=== PATIENT | male | born 1955 | race Caucasian/White ===

== ENCOUNTER 2021-10-13 16:29 | Inpatient (IN) | payer BC, MEDICARE ==
[2021-10-13 17:12] LABS: #Lymphocytes 1.6 thou/uL (1.20-3.40); #Monocytes 0.6 thou/uL (0.11-0.59); #Neutrophils 6.8 thou/uL (1.40-6.50); %Basophils 0.4 % (0.0-1.0); %Eosinophils 0.2 % (0.0-10.0); %Lymphocytes 17.3 % (21.0-51.0); %Monocytes 6.5 % (0.0-10.0); %Neutrophils 75.6 % (42.0-75.0); Mean Corpuscular HGB CONC 35.3 g/dL (32.0-36.0); Mean Corpuscular Hemoglobin 31.7 pg (27.0-31.0); Mean Platelet Volume 8.8 fL (7.4-10.4); Platelet Count 208 thou/uL (130-400); RBC Distribution Width 12.3 % (11.5-14.5); Red Blood Cell (RBC) Count 5.36 mill/uL (4.70-6.10)
[2021-10-13 17:37] LABS: ALT (SGPT) 25 U/L (8-55); AST (SGOT) 32 U/L (5-34); Albumin 4.7 g/dL (3.4-4.8); Alkaline Phosphatase 56 U/L (40-110); Anion Gap 17 mmol/L (10-20); BUN (Urea Nitrogen) 14 mg/dL (8.4-25.7); Calc. Creatinine Clearance 0 mL/min (70-130); Calcium 9.8 mg/dL (7.8-10.44); Carbon Dioxide 23 mmol/L (23-31); Chloride 99 mmol/L (98-107); Estimated GFR 70; Glucose 96 mg/dL (80-115); Potassium 3.9 mmol/L (3.5-5.1); Protein, Total 7.7 g/dL (5.8-8.1); Sodium 135 mmol/L (136-145)
[2021-10-13] MEDS ORDERED: levETIRAcetam 500 MG/5 ML VIAL ONE (18:28)
[2021-10-13] MEDS ORDERED: Enoxaparin Sodium 80 MG/0.8 ML SYRINGE ONE (18:47)
[2021-10-13] MEDS ORDERED: Enoxaparin Sodium 100 MG/ML SYRINGE ONE (18:51)
[2021-10-13] MEDS ORDERED: Ondansetron PF 4 MG/2 ML Vial IVP PRN (21:17)
[2021-10-13] MEDS ORDERED: Acetaminophen 650 MG Suppository PR PRN (21:17)
[2021-10-13] MEDS ORDERED: Ondansetron ODT 4 MG TAB PO PRN (21:17)
[2021-10-13] MEDS ORDERED: Acetaminophen 325 MG TAB PO PRN (21:17)
[2021-10-13 22:04] VITALS: BMI 29.2
[2021-10-13 22:42] LABS: Troponin I Less than 0.010 ng/mL (< 0.028)
[2021-10-14 02:29] LABS: #Basophils 0.1 thou/uL (0.0-0.2); #Eosinphils 0.1 thou/uL (0.0-0.7); #Lymphocytes 2.1 thou/uL (1.20-3.40); #Monocytes 0.8 thou/uL (0.11-0.59); #Neutrophils 4.7 thou/uL (1.40-6.50); %Basophils 0.7 % (0.0-1.0); %Eosinophils 1.1 % (0.0-10.0); %Lymphocytes 26.7 % (21.0-51.0); %Monocytes 10.9 % (0.0-10.0); %Neutrophils 60.6 % (42.0-75.0); Hemoglobin 15.9 g/dL (14.0-18.0); Mean Corpuscular HGB CONC 35.7 g/dL (32.0-36.0); Mean Corpuscular Hemoglobin 32.2 pg (27.0-31.0); Mean Corpuscular Volume 90.1 fL (78.0-98.0); Mean Platelet Volume 8.4 fL (7.4-10.4); Platelet Count 206 thou/uL (130-400); RBC Distribution Width 12.4 % (11.5-14.5); Red Blood Cell (RBC) Count 4.94 mill/uL (4.70-6.10); White Blood Cell (WBC) Count 7.7 thou/uL (4.8-10.8)
[2021-10-14 02:49] LABS: Troponin I Less than 0.010 ng/mL (< 0.028)
[2021-10-14 02:51] LABS: Anion Gap 17 mmol/L (10-20); BUN (Urea Nitrogen) 14 mg/dL (8.4-25.7); Carbon Dioxide 20 mmol/L (23-31); Chloride 106 mmol/L (98-107); Potassium 3.7 mmol/L (3.5-5.1); Sodium 139 mmol/L (136-145)
[2021-10-14 02:52] LABS: Calc. Creatinine Clearance 97 mL/min (70-130); Calcium 9.2 mg/dL (7.8-10.44); Estimated GFR 84; Glucose 78 mg/dL (80-115)
[2021-10-14] MEDS: Enoxaparin Sodium 100 MG/ML SYRINGE SC SCH ×2 (09:05→20:30)
[2021-10-14] MEDS ORDERED: Dronedarone HCl 400 MG TAB PO SCH (12:30)
[2021-10-14] MEDS: Dronedarone HCl 400 MG TAB PO SCH (18:30)
[2021-10-15] MEDS ORDERED: Diltiazem 125 MG in Sodium Chloride 0.9% 100 ML IVPB SCH (09:00)
[2021-10-15] MEDS: Enoxaparin Sodium 100 MG/ML SYRINGE SC SCH (09:07)
[2021-10-15] MEDS: busPIRone HCl 10 MG TAB PO PRN ×2 (09:08→20:05)
[2021-10-15] MEDS: Dronedarone HCl 400 MG TAB PO SCH ×2 (09:08→16:54)
[2021-10-15] MEDS ORDERED: Diltiazem HCl 125 MG in Premix Bag 1 BAG IVPB SCH ×2 (09:15→16:53)
[2021-10-15] MEDS ORDERED: Regadenoson 0.4 MG/5 ML SYRINGE ONE (14:40)
[2021-10-15] MEDS: Simvastatin 10 MG TAB PO SCH (20:03)
[2021-10-15] MEDS: Apixaban 5 MG TAB PO SCH (20:03)
[2021-10-16 04:48] LABS: Anion Gap 17 mmol/L (10-20); BUN (Urea Nitrogen) 13 mg/dL (8.4-25.7); Calc. Creatinine Clearance 85 mL/min (70-130); Calcium 9.3 mg/dL (7.8-10.44); Carbon Dioxide 17 mmol/L (23-31); Chloride 105 mmol/L (98-107); Estimated GFR 72; Glucose 108 mg/dL (80-115); Sodium 135 mmol/L (136-145)
[2021-10-16] MEDS ORDERED: Diltiazem HCl 125 MG in Premix Bag 1 BAG IVPB SCH (08:38)
[2021-10-16] MEDS: Dronedarone HCl 400 MG TAB PO SCH ×2 (08:56→17:59)
[2021-10-16] MEDS: Apixaban 5 MG TAB PO SCH ×2 (08:56→20:29)
[2021-10-16] MEDS: busPIRone HCl 10 MG TAB PO PRN ×2 (11:38→20:28)
[2021-10-16] MEDS: Simvastatin 10 MG TAB PO SCH (20:29)
[2021-10-17] MEDS: Dronedarone HCl 400 MG TAB PO SCH ×2 (08:52→16:09)
[2021-10-17] MEDS: busPIRone HCl 10 MG TAB PO PRN ×2 (08:52→20:35)
[2021-10-17] MEDS: Apixaban 5 MG TAB PO SCH ×2 (08:52→20:35)
[2021-10-17] MEDS ORDERED: Digoxin 0.5 MG/2 ML AMP SLOW IVP PRN ×2 (10:10→16:06)
[2021-10-17] MEDS ORDERED: Digoxin 0.5 MG/2 ML AMP SLOW IVP SCH (11:00)
[2021-10-17] MEDS: Simvastatin 10 MG TAB PO SCH (20:35)
[2021-10-18 05:02] LABS: Anion Gap 15 mmol/L (10-20); BUN (Urea Nitrogen) 10 mg/dL (8.4-25.7); Calc. Creatinine Clearance 97 mL/min (70-130); Calcium 9.3 mg/dL (7.8-10.44); Carbon Dioxide 22 mmol/L (23-31); Chloride 104 mmol/L (98-107); Estimated GFR 86; Glucose 118 mg/dL (80-115); Potassium 3.9 mmol/L (3.5-5.1); Sodium 137 mmol/L (136-145)
[2021-10-18 07:46] VITALS: BP 114/73; TEMP 97.4
[2021-10-18] MEDS: Dronedarone HCl 400 MG TAB PO SCH (09:29)
[2021-10-18] MEDS: busPIRone HCl 10 MG TAB PO PRN (09:29)
[2021-10-18] MEDS: Apixaban 5 MG TAB PO SCH (09:29)
== END 2021-10-18 11:19 | disposition home or self-care (01) | DRG 309 ==
LOC: ERS 16:29 → 2NO 19:36
PROVIDERS: ADMIT Internal Medicine; ATTEND Internal Medicine
DX: I48.92 Unspecified atrial flutter (principal); Q23.1 Congenital insufficiency of aortic valve; Z20.822 Contact with and (suspected) exposure to COVID-19; E78.00 Pure hypercholesterolemia, unspecified; I10 Essential (primary) hypertension; I49.3 Ventricular premature depolarization; I48.0 Paroxysmal atrial fibrillation; Z88.8 Allergy status to other drugs, medicaments and biological substances; Z79.899 Other long term (current) drug therapy
CPT/HCPCS: 36415; 71045; 78452; 80048; 80053; 80061; 82306; 83036; 83735; 84443; 84484; 85025; 93005; 93010; 93017; 93306; A9500; G0103; J1160; J1650; J1953; J2785; U0003; U0005

== ENCOUNTER 2021-11-18 10:30 | Outpatient (CLI) | payer BC ==
[2021-11-18 11:22] LABS: Hemoglobin 15.9 g/dL (13.5-17.5); Mean Corpuscular HGB CONC 34.9 g/dL (32.0-36.0); Mean Corpuscular Hemoglobin 30.6 pg (27.0-33.0); Mean Corpuscular Volume 87.9 fl (81.2-95.1); Mean Platelet Volume 10.8 fl (7.4-10.4); Platelet Count 234 10x3/uL (150-450); RBC Distribution Width 14.3 % (11.5-14.5); Red Blood Cell (RBC) Count 5.19 10x6/uL (4.32-5.72); White Blood Cell (WBC) Count 7.1 10x3/uL (3.5-10.5)
[2021-11-18 11:37] LABS: INR-International Normal Ratio 1.1; PTT 29.3 sec (22.0-33.0); Prothrombin Time 11.4 sec (9.5-12.1)
[2021-11-18 11:39] LABS: Anion Gap 13 mmol/L (10-20); BUN (Urea Nitrogen) 15 mg/dL (8.4-25.7); Calc. Creatinine Clearance 0 mL/min (70-130); Calcium 9.2 mg/dL (7.8-10.44); Carbon Dioxide 22 mmol/L (23-31); Chloride 104 mmol/L (98-107); Estimated GFR 82; Glucose 90 mg/dL (80-115); Potassium 4.3 mmol/L (3.5-5.1); Sodium 135 mmol/L (136-145)
== END 2021-11-18 10:31 | disposition home or self-care (01) ==
LOC: LABBT 10:30
PROVIDERS: ATTEND Internal Medicine Cardiovascular Disease
DX: Z01.812 Encounter for preprocedural laboratory examination (principal); Z20.822 Contact with and (suspected) exposure to COVID-19
CPT/HCPCS: 80048; 85027; 85610; 85730; 87811

== ENCOUNTER 2021-11-23 08:52 | Day surgery (SDC) | payer BC ==
[2021-11-19 11:42] VITALS: BMI 29.2
[2021-11-23] MEDS ORDERED: Heparin 25,000 units/D5W 500 ML ONE (09:22)
[2021-11-23] MEDS ORDERED: Heparin 10,000 UNITS/ 10 ML VIAL ONE (09:22)
[2021-11-23] MEDS ORDERED: Protamine Sulfate 50 MG/5 ML VIAL ONE (09:22)
[2021-11-23] MEDS ORDERED: Isoproterenol 0.2 MG/1 ML AMP ONE (09:22)
[2021-11-23] MEDS ORDERED: Fentanyl 100 MCG/2 ML VIAL ONE (12:49)
[2021-11-23] MEDS ORDERED: Rocuronium Bromide 10 MG/ML (10ML VIAL) ONE (12:55)
[2021-11-23] MEDS ORDERED: Dexamethasone 20 MG/5 ML VIAL ONE (12:55)
[2021-11-23] MEDS ORDERED: Ondansetron PF 4 MG/2 ML Vial ONE (12:55)
[2021-11-23] MEDS ORDERED: PROPOFOL 200 MG/20 ML VIAL ONE (12:55)
[2021-11-23] MEDS ORDERED: Esmolol 100 MG/10 ML VIAL ONE (12:55)
[2021-11-23] MEDS ORDERED: Midazolam HCl 2 mg/2 ml Vial ONE (12:57)
== END 2021-11-23 20:07 | disposition home or self-care (01) ==
LOC: SDC 08:52
PROVIDERS: ATTEND Internal Medicine Cardiovascular Disease
PROC: 4A0234Z Measurement of Cardiac Electrical Activity, Percutaneous Approach (ICD-10-PCS; principal; 2021-11-23)
PROC: 02K83ZZ Map Conduction Mechanism, Percutaneous Approach (ICD-10-PCS; principal; 2021-11-23)
PROC: B244ZZ3 Ultrasonography of Right Heart, Intravascular (ICD-10-PCS; principal; 2021-11-23)
PROC: 02583ZZ Destruction of Conduction Mechanism, Percutaneous Approach (ICD-10-PCS; principal; 2021-11-23)
PROC: 4A023FZ Measurement of Cardiac Rhythm, Percutaneous Approach (ICD-10-PCS; principal; 2021-11-23)
DX: I48.0 Paroxysmal atrial fibrillation (principal); I48.3 Typical atrial flutter; Q23.1 Congenital insufficiency of aortic valve; I10 Essential (primary) hypertension; I45.10 Unspecified right bundle-branch block; Z79.01 Long term (current) use of anticoagulants; Z79.899 Other long term (current) drug therapy; Z88.8 Allergy status to other drugs, medicaments and biological substances
CPT/HCPCS: 85347; 93005; 93010; 93623; 93655; 93656; C1732; C1759; C1760; C1769; C1894; J1100; J1644; J2250; J2405; J2704; J2720; J3010